=== PATIENT | female | born 1995 | race Caucasian/White ===

== ENCOUNTER 2018-01-24 12:07 | Emergency (ER) | payer OTHER, SELFPAY ==
[2018-01-24 12:17] VITALS: BP 121/74; PULSE 99; RESP 14; TEMP 37.1; O2SAT 99; BMI 26.6
--- NOTE | 2018-01-24 12:26 | ED_ITS ---
HPI - Female Genitourinary <VENICE Deluca - Last Filed: 01/24/18 21:48> General Chief complaint: Urogenital-Female Stated complaint: LEFT FLANK PAIN Time Seen by Provider: 01/24/18 12:25 Source: patient Mode of arrival: ambulatory Limitations: no limitations History of Present Illness HPI Narrative: 22-year-old female with history of depression and PTSD that is a part-time smoker here for very diffuse symptoms of headache chest pain shortness of breath and abdominal pain over the last past week and a half. She was seen by her primary care provider and obtained workup including abdominal CT that was negative for any acute findings. She reports that she does not have a history of having headaches and the headache is towards the back of her head over the past week. She states she may have had a fever a few days ago. She states she has some nausea but no vomiting at this timeframe. She reports last bowel movement was earlier today and was unremarkable. She denies any urinary symptoms. She does have a increased whitish vaginal discharge she denies any vaginal bleeding. She currently does have control via IUD. She denies any stressors or relievers of her pain. She is ambulatory into the emergency room. She is able to speak full sentences. No acute distress. Related Data Home Medications Medication Instructions Recorded Confirmed ferrous sulfate [Iron (ferrous 325 mg PO QDAY #0 04/01/17 sulfate)] [DAYQUIL] PO PRN #0 06/21/17 ibuprofen PO PRN PRN #0 06/21/17 clonidine HCl 1 tab PO BID 01/24/18 01/24/18 dextroamphetamine-amphetamine 1 tab PO DAILY 01/24/18 01/24/18 [Adderall] fluticasone 01/24/18 01/24/18 loratadine 1 tab PO DAILY 01/24/18 01/24/18 methylphenidate HCl 1 tab PO DAILY 01/24/18 01/24/18 naproxen 1 tab PO BID 01/24/18 01/24/18 Previous Rx's Medication Instructions Recorded sertraline 100 mg PO QDAY #90 tab 04/01/17 docusate sodium [Colace] 100 mg PO BID #14 cap 06/22/17 oxycodone 5 mg PO Q4HP PRN #30 tab 06/22/17 sennosides [Senokot] 8.6 mg PO QDAY #10 tab 06/22/17 clindamycin HCl 300 mg PO BID #14 cap 01/24/18 Allergies Allergy/AdvReac Type Severity Reaction Status Date / Time metronidazole [From Flagyl] Allergy Intermediate Swelling Verified 01/24/18 12: 21 of Lip/Tongue/Throat Review of Systems <VENICE Deluca - Last Filed: 01/24/18 21:48> Constitutional Reports fever(s) Eyes Denies change in vision, Denies eye discharge, Denies irritation and Denies loss of vision ENT Ears, Nose, Mouth, and Throat: Denies change in voice, Denies neck pain and Denies sore throat Cardiovascular Reports chest pain, Denies irregular heart rhythm, Denies lightheadedness, Denies palpitations, Reports dyspnea, Denies dyspnea on exertion and Denies orthopnea Respiratory Denies cough, Reports dyspnea, Denies dyspnea on exertion and Denies wheezing Gastrointestinal Gastrointestinal: Reports abdominal pain, Denies change in bowel habits, Denies diarrhea, Denies nausea and Denies vomiting Genitourinary Denies hematuria, Denies flank pain, Denies urinary incontinence and Denies urinary urgency Musculoskeletal Denies neck pain Neurologic Denies loss of vision Endocrine Denies palpitations Allergic/Immunologic Denies wheezing Exam <VENICE Deluca - Last Filed: 01/24/18 21:48> Initial Vital Signs Initial Vital Signs: Vital Signs Temperature 98.7 F 01/24/18 12:17 Pulse Rate 99 H 01/24/18 12:17 Respiratory Rate 14 01/24/18 12:17 Blood Pressure 121/74 01/24/18 12:17 Pulse Oximetry 99 01/24/18 12:17 Const General: cooperative and well developed Nutritional Appearance: well nourished Orientation: alert, awake, oriented x3 and not confused [facility] Mouth: oral mucosae normal and moist mucous membranes Eyes Conjunctivae: conjunctivae normal Sclera: sclerae normal Pupils: PERRL EOM: EOM intact bilaterally Neck Neck: normal visual inspection, trachea midline, No lymphadenopathy, No midline deformity and No JVD Lymphatic: No lymphedema Chest Chest: normal inspection of the chest Resp Effort & Inspection: normal respiratory effort, able to speak in complete sentences, no respiratory distress and no use of accessory muscles Auscultation: clear to auscultation bilaterally, no rales, no rhonchi and no wheezes Cardio Rate: regular rate Rhythm: regular rhythm Heart Sounds: no click, no gallops, no murmurs and no rubs Pulses: normal peripheral pulses GI Inspection: non-distended Palpation: soft, no hepatosplenomegaly, No guarding, No pulsatile mass and No tender Auscultation: normal bowel sounds Speculum Exam - Vagina: normal appearance of the vagina, abnormal vaginal discharge white, no lacerations, no lesions, no swelling and nontender Speculum Exam - Cervix: closed cervix, cervical lesion ( cervix erythematous) other and cervical tenderness Bimanual Exam- Vagina & Uterus: cervical tenderness Skin General: no rashes or lesions noted, No jaundice and No petechiae Neuro General: alert, oriented x3, gait normal and no focal motor deficits Speech: speech normal Extrem General: full ROM, no clubbing, cyanosis or edema, no pedal edema and no calf tenderness <Matt Maloney DO - Last Filed: 01/25/18 07:11> Initial Vital Signs Initial Vital Signs: Vital Signs Temperature 98.7 F 01/24/18 12:17 Pulse Rate 99 H 01/24/18 12:17 Respiratory Rate 14 01/24/18 12:17 Blood Pressure 121/74 01/24/18 12:17 Pulse Oximetry 99 01/24/18 12:17 Course <VENICE Deluca - Last Filed: 01/24/18 21:48> Orders Ordered: Discontinued Medications Hydromorphone HCl (Dilaudid) 0.5 mg IV NOW ONE Stop: 01/24/18 13:07 Last Admin: 01/24/18 13:42 Dose: 0.5 mg Hydromorphone HCl (Dilaudid) 0.5 mg IV NOW ONE Stop: 01/24/18 16:03 Last Admin: 01/24/18 16:31 Dose: 0.5 mg Sodium Chloride (Normal Saline 0.9%) 1,000 mls @ 1,000 mls/hr IV BOLUS ONE Stop: 01/24/18 14:05 Last Infusion: 01/24/18 16:14 Dose: 0 mls/hr Admin: 01/24/18 13:43 Dose: 1,000 mls/hr Ondansetron HCl (Zofran) 4 mg IV NOW ONE Stop: 01/24/18 13:07 Last Admin: 01/24/18 13:43 Dose: 4 mg Vital Signs - 8 hr 01/24/18 14:20 01/24/18 15:13 01/24/18 16:33 Pulse Rate 86 78 80 Respiratory Rate 16 18 18 Blood Pressure [Left Arm] 117/75 117/72 107/68 Pulse Oximetry 99 97 98 01/24/18 16:58 Pulse Rate 101 H Respiratory Rate 18 Blood Pressure [Left Arm] 112/70 Pulse Oximetry 97 <Matt Maloney DO - Last Filed: 01/25/18 07:11> Orders Ordered: Discontinued Medications Hydromorphone HCl (Dilaudid) 0.5 mg IV NOW ONE Stop: 01/24/18 13:07 Last Admin: 01/24/18 13:42 Dose: 0.5 mg Hydromorphone HCl (Dilaudid) 0.5 mg IV NOW ONE Stop: 01/24/18 16:03 Last Admin: 01/24/18 16:31 Dose: 0.5 mg Sodium Chloride (Normal Saline 0.9%) 1,000 mls @ 1,000 mls/hr IV BOLUS ONE Stop: 01/24/18 14:05 Last Infusion: 01/24/18 16:14 Dose: 0 mls/hr Admin: 01/24/18 13:43 Dose: 1,000 mls/hr Ondansetron HCl (Zofran) 4 mg IV NOW ONE Stop: 01/24/18 13:07 Last Admin: 01/24/18 13:43 Dose: 4 mg Vital Signs - 8 hr 01/24/18 14:20 01/24/18 15:13 01/24/18 16:33 Pulse Rate 86 78 80 Respiratory Rate 16 18 18 Blood Pressure [Left Arm] 117/75 117/72 107/68 Pulse Oximetry 99 97 98 01/24/18 16:58 Pulse Rate 101 H Respiratory Rate 18 Blood Pressure [Left Arm] 112/70 Pulse Oximetry 97 MDM - Female Genitourinary <VENICE Deluca - Last Filed: 01/24/18 21:48> Differential Diagnosis Likely cervicitis Lab Data Result diagrams: 01/24/18 12:53 01/24/18 12:53 Lab Results 10/29/18 10/29/18 10/29/18 Range/Units 12:53 12:53 12:53 WBC 8.9 (4.5-11.0) X10^3/uL RBC 4.45 (4.0-5.2) X10^6/uL Hgb 11.3 L (12.0-16.0) g/dL Hct 34.0 L (36-46) % MCV 76.3 L (80-100) fL MCH 25.3 L (26-34) PG MCHC 33.1 (30-36) % RDW 15.9 H (11.6-14.8) % Plt Count 223 (150-400) X10^3/uL Neut % (Auto) 39.7 L (50-75) % Lymph % (Auto) 49.8 H (25-40) % [place] % (Auto) 9.5 (3-14) % Eos % (Auto) 0.7 L (2-4) % Baso % (Auto) 0.3 (0-2) % Neut # (Auto) 3500 (5090-4850) /uL D-Dimer 375 H (<230) ng/mL Sodium 144 (137-145) mmol/L Potassium 4.3 (3.4-5.1) mmol/L Chloride 104 (98-107) mmol/L Carbon Dioxide 25 (22-32) mmol/L BUN 10 (7-17) mg/dL Creatinine 0.60 (0.52-1.04) mg/dL Estimated GFR > 60.0 (>60) mL/min BUN/Creatinine Ratio 16.7 (6-22) Glucose 88 (70-100) mg/dL Calcium 9.5 (8.4-10.2) mg/dL Total Bilirubin 0.4 (0.2-1.3) mg/dL AST 53 H (14-36) IU/L ALT 56 H (9-52) IU/L Alkaline Phosphatase 96 (38-126) U/L Total Creatine Kinase 48 (30-135) U/L CK-MB (CK-2) TNP CK-MB (CK-2) Rel Index TNP Troponin I < 0.012 (0.01-0.034) ng/mL Total Protein 8.0 (6.3-8.2) g/dL Albumin 4.7 (3.5-5.0) g/dL Globulin 3.3 (1.7-4.1) g/dL Albumin/Globulin Ratio 1.4 (1.0-2.8) Lipase 39 (23-300) U/L Ur Chlamydia DNA (PCR) Monoscreen (Negative) Influenza A & B (PCR) (Negative) N gonorrhoeae DNA (PCR) 01/24/18 01/24/18 01/24/18 Range/Units 12:53 13:11 Unknown WBC (4.5-11.0) X10^3/uL RBC (4.0-5.2) X10^6/uL Hgb (12.0-16.0) g/dL Hct (36-46) % MCV (80-100) fL MCH (26-34) PG MCHC (30-36) % RDW (11.6-14.8) % Plt Count (150-400) X10^3/uL Neut % (Auto) (50-75) % Lymph % (Auto) (25-40) % [place] % (Auto) (3-14) % Eos % (Auto) (2-4) % Baso % (Auto) (0-2) % Neut # (Auto) (7471-3274) /uL D-Dimer (<230) ng/mL Sodium (137-145) mmol/L Potassium (3.4-5.1) mmol/L Chloride (98-107) mmol/L Carbon Dioxide (22-32) mmol/L BUN (7-17) mg/dL Creatinine (0.52-1.04) mg/dL Estimated GFR (>60) mL/min BUN/Creatinine Ratio (6-22) Glucose (70-100) mg/dL Calcium (8.4-10.2) mg/dL Total Bilirubin (0.2-1.3) mg/dL AST (14-36) IU/L ALT (9-52) IU/L Alkaline Phosphatase (38-126) U/L Total Creatine Kinase (30-135) U/L CK-MB (CK-2) CK-MB (CK-2) Rel Index Troponin I (0.01-0.034) ng/mL Total Protein (6.3-8.2) g/dL Albumin (3.5-5.0) g/dL Globulin (1.7-4.1) g/dL Albumin/Globulin Ratio (1.0-2.8) Lipase (23-300) U/L Ur Chlamydia DNA (PCR) Not detected Monoscreen Negative (Negative) Influenza A & B (PCR) Negative (Negative) N gonorrhoeae DNA (PCR) Not detected Point of Care Testing Test Results Negative Urine Dip Bedside Urine Glucose Negative Bedside Urine Bilirubin - Negative Bedside Urine Ketone - Negative Urine Specific [place] 1.010 Bedside Urine Occult Blood - Negative Bedside Urine pH 6.0 Bedside Urine Protein - Negative Bedside Urine Urobilinogen - Negative Bedside Urine Nitrite - Negative Bedside Urine Leukocytes - Negative Esterase Imaging Data Chest x-ray: Radiologist's impression: [address] [address] XRay Report Signed Patient: Gabriela Yepez [facility]#: [id number] : 1995Acct:[id number] Age/Sex: 22 / FDate of Service: 01/24/18 Loc: ED Accession Number: [id number] Procedure: XR chest 1V Ordering Provider: Erlin Cruz PROCEDURE: XR CHEST 1V INDICATIONS: chest pain TECHNIQUE: One view of the chest was acquired. COMPARISON: None. FINDINGS: Surgical changes and devices: None. Lungs and pleura: No pleural effusions or pneumothorax. Lungs are clear. Mediastinum: Mediastinal contours appear normal. Heart size is normal. Bones and chest wall: No suspicious bony lesions. Overlying soft tissues appear unremarkable. IMPRESSION: Normal for age, source of chest pain is not seen. Dictated by: Doug Gar M.D. on 01/24/2018 at 13:53 Approved by: Doug Gar M.D. on 01/24/2018 at 13:53 CT scan - head: My impression: Radiologist's impression: [address] [address] [address] Scan Report Signed Patient: Gabriela Yepez [facility]#: [id number] : 1995Acct:[id number] Age/Sex: 22 / FDate of Service: 01/24/18 Loc: ED Accession Number: [id number] Procedure: CT head/brain wo con Ordering Provider: Erlin Cruz PROCEDURE: CT HEAD/BRAIN WO CON INDICATIONS: headache no prior headache history TECHNIQUE: Noncontrast 4.5 mm thick angled axial sections acquired from the foramen magnum to the vertex, with coronal and sagittal reformats. For radiation dose reduction, the following was used: automated exposure control, adjustment of mA and/or kV according to patient size. COMPARISON: None. FINDINGS: Image quality: Excellent. CSF spaces: Basal cisterns are patent. No extra-axial fluid collections. The ventricles are symmetric in size and shape. Brain: No intracranial bleeds or masses. Fisher-white matter differentiation is normal. Skull and face: Calvarium and visualized facial bones appear intact, without suspicious lesions. Sinuses: Visualized sinuses and mastoids are clear. IMPRESSION: No acute intracranial disease process. Dictated by: Maria Antonia Vasquez MD, PhD on 01/24/2018 at 12:24 Approved by: Maria Antonia Vasquez MD, PhD on 01/24/2018 at 12:27 US - abdomen: Radiologist's impression: [place] [address] Ultrasound Report Signed Patient: Gabriela Yepez [facility]#: [id number] : 1995Acct:[id number] Age/Sex: 22 / FDate of Service: 01/24/18 Loc: ED Accession Number: [id number] Procedure: US abdomen complete Ordering Provider: Erlin Cruz PROCEDURE: US ABDOMEN COMPLETE INDICATIONS: LUQ PAIN TECHNIQUE: Real-time scanning was performed of the abdominal and retroperitoneal organs, with image documentation. COMPARISON: None. FINDINGS: Liver: Liver is normal in size and homogeneous in echotexture. Gallbladder: The gallbladder appears normal Biliary ducts: Intrahepatic bile ducts are non-dilated. Extrahepatic bile duct caliber measures 3.6 mm. Normal is 6-7 mm or less in diameter, or 10 mm or less post-cholecystectomy. Pancreas: Visualized portions of the pancreas are sonographically normal. Spleen: Spleen is enlarged in size at 15.3 cm craniocaudad and homogeneous in echotexture. Kidneys: Kidneys are normal in size and echotexture. Right kidney measures 10.3 cm long; left kidney measures 11.6 cm long. No hydronephrosis or nephrolithiasis. No solid masses. Aorta: Visualized aorta is normal in caliber at less than 3 cm. Iliacs: Proximal common iliac arteries are normal in caliber at less than 2.5 cm. IVC: Intrahepatic inferior vena cava is patent. Miscellaneous: No free abdominal fluid. IMPRESSION: Splenomegaly, with a craniocaudad length of the spleen up to 15.3 cm. Etiology is uncertain, no splenic infarction or hemorrhage is found. Dictated by: Doug Gar M.D. on 01/24/2018 at 14:22 Approved by: Doug Gar M.D. on 01/24/2018 at 14:24 ECG Data Interpretation: EKG shows normal sinus rhythm with no ST elevation or depression. No ectopy. Ventricular rate 73. Pr interval 128. QRS duration of 81. QTC 373. MDM Narrative Medical decision making narrative: CBC Chem panel were obtained were unremarkable. Lipase was negative. A chest x-ray is negative for any acute findings. Cardiac enzymes were negative. EKG shows sinus rhythm with no ST elevation or depression. No ectopy. CT of the head was obtained was negative for any acute findings. Abdominal ultrasound was obtained and shows mild splenomegaly with no hemorrhages or ruptures. D-dimer was obtained as the patient reports having some chest pain and shortness of breath and is currently on control. It was elevated at 375 however is below 500 threshold a for indication for chest PE protocol CT. Monospot was obtained and was negative. Otherwise abdominal ultrasound is unremarkable. Wet prep was obtained during pelvic exam and shows positive for clue cells. She is placed on clindamycin. unknown etiology for headache chest pain shortness of breath and abdominal pain. Will have follow-up with primary care provider later this week for re- evaluation. Use [id number] ibuprofen as needed for any discomfort. For any worsening symptoms return to the emergency room. GC and chlamydia urine was obtained and was negative.. <Matt Maloney, DO - Last Filed: 01/25/18 07:11> Lab Data Lab Results 01/24/18 01/24/18 01/24/18 Range/Units 12:53 12:53 12:53 WBC 8.9 (4.5-11.0) X10^3/uL RBC 4.45 (4.0-5.2) X10^6/uL Hgb 11.3 L (12.0-16.0) g/dL Hct 34.0 L (36-46) % MCV 76.3 L (80-100) fL MCH 25.3 L (26-34) PG MCHC 33.1 (30-36) % RDW 15.9 H (11.6-14.8) % Plt Count 223 (150-400) X10^3/uL Neut % (Auto) 39.7 L (50-75) % Lymph % (Auto) 49.8 H (25-40) % [place] % (Auto) 9.5 (3-14) % Eos % (Auto) 0.7 L (2-4) % Baso % (Auto) 0.3 (0-2) % Neut # (Auto) 3500 (1833-2834) /uL D-Dimer 375 H (<230) ng/mL Sodium 144 (137-145) mmol/L Potassium 4.3 (3.4-5.1) mmol/L Chloride 104 (98-107) mmol/L Carbon Dioxide 25 (22-32) mmol/L BUN 10 (7-17) mg/dL Creatinine 0.60 (0.52-1.04) mg/dL Estimated GFR > 60.0 (>60) mL/min BUN/Creatinine Ratio 16.7 (6-22) Glucose 88 (70-100) mg/dL Calcium 9.5 (8.4-10.2) mg/dL Total Bilirubin 0.4 (0.2-1.3) mg/dL AST 53 H (14-36) IU/L ALT 56 H (9-52) IU/L Alkaline Phosphatase 96 (38-126) U/L Total Creatine Kinase 48 (30-135) U/L CK-MB (CK-2) TNP CK-MB (CK-2) Rel Index TNP Troponin I < 0.012 (0.01-0.034) ng/mL Total Protein 8.0 (6.3-8.2) g/dL Albumin 4.7 (3.5-5.0) g/dL Globulin 3.3 (1.7-4.1) g/dL Albumin/Globulin Ratio 1.4 (1.0-2.8) Lipase 39 (23-300) U/L Ur Chlamydia DNA (PCR) Monoscreen (Negative) Influenza A & B (PCR) (Negative) N gonorrhoeae DNA (PCR) 01/24/18 01/24/18 01/24/18 Range/Units 12:53 13:11 Unknown WBC (4.5-11.0) X10^3/uL RBC (4.0-5.2) X10^6/uL Hgb (12.0-16.0) g/dL Hct (36-46) % MCV (80-100) fL MCH (26-34) PG MCHC (30-36) % RDW (11.6-14.8) % Plt Count (150-400) X10^3/uL Neut % (Auto) (50-75) % Lymph % (Auto) (25-40) % [place] % (Auto) (3-14) % Eos % (Auto) (2-4) % Baso % (Auto) (0-2) % Neut # (Auto) (4872-6716) /uL D-Dimer (<230) ng/mL Sodium (137-145) mmol/L Potassium (3.4-5.1) mmol/L Chloride (98-107) mmol/L Carbon Dioxide (22-32) mmol/L BUN (7-17) mg/dL Creatinine (0.52-1.04) mg/dL Estimated GFR (>60) mL/min BUN/Creatinine Ratio (6-22) Glucose (70-100) mg/dL Calcium (8.4-10.2) mg/dL Total Bilirubin (0.2-1.3) mg/dL AST (14-36) IU/L ALT (9-52) IU/L Alkaline Phosphatase (38-126) U/L Total Creatine Kinase (30-135) U/L CK-MB (CK-2) CK-MB (CK-2) Rel Index Troponin I (0.01-0.034) ng/mL Total Protein (6.3-8.2) g/dL Albumin (3.5-5.0) g/dL Globulin (1.7-4.1) g/dL Albumin/Globulin Ratio (1.0-2.8) Lipase (23-300) U/L Ur Chlamydia DNA (PCR) Not detected Monoscreen Negative (Negative) Influenza A & B (PCR) Negative (Negative) N gonorrhoeae DNA (PCR) Not detected Point of Care Testing Test Results Negative Urine Dip Bedside Urine Glucose Negative Bedside Urine Bilirubin - Negative Bedside Urine Ketone - Negative Urine Specific [place] 1.010 Bedside Urine Occult Blood - Negative Bedside Urine pH 6.0 Bedside Urine Protein - Negative Bedside Urine Urobilinogen - Negative Bedside Urine Nitrite - Negative Bedside Urine Leukocytes - Negative Esterase Discharge Plan Departure Patient Disposition: Home Clinical Impression: Bacterial vaginosis, Abdominal pain Discharge Date/Time: 01/24/18 17:00 Interventions: ED Discharge Assessment Last Done: 01/24/18 17:00 Instructions: DI for Bacterial Vaginosis Activity Restrictions/Additional Instructions: laboratory results today were unremarkable. Chest x-ray and EKG were negative. Head CT was obtained was negative for any acute findings. Abdominal ultrasound shows a mildly enlarged spleen this may be due to recent infection a mononucleosis screen was obtained and was negative. Vaginal swab shows indication of bacterial vaginosis. You are placed on an antibiotic use as directed. Use [id number] Tylenol or Motrin as needed for any discomfort. Follow up with her primary care provider next few days for re-evaluation. For any worsening symptoms return to the emergency room. Prescriptions: New clindamycin HCl 300 mg capsule 300 mg PO BID Qty: 14 RF: 0 No Action sertraline 100 MG tablet 100 mg PO QDAY Qty: 90 RF: 3 ferrous sulfate [Iron (ferrous sulfate)] 325 MG tablet 325 mg PO QDAY Qty: 0 RF: 0 ibuprofen 200 MG tablet PO PRN PRNQty: 0 RF: 0 [DAYQUIL] PO PRN Qty: 0 RF: 0 sennosides [Senokot] 8.6 MG tablet 8.6 mg PO QDAY Qty: 10 RF: 1 docusate sodium [Colace] 100 MG capsule 100 mg PO BID Qty: 14 RF: 1 oxycodone 5 MG tablet 5 mg PO Q4HP PRNQty: 30 RF: 0 clonidine HCl 0.1 mg tablet 1 tab PO BID RF: 0 dextroamphetamine-amphetamine [Adderall] 10 mg tablet 1 tab PO DAILY RF: 0 fluticasone 50 mcg/actuation spray,suspension RF: 0 loratadine 10 mg tablet 1 tab PO DAILY RF: 0 naproxen 500 mg tablet 1 tab PO BID RF: 0 methylphenidate HCl 36 mg tablet extended release 24hr 1 tab PO DAILY RF: 0 Referrals: Jose Alejandro Busby MD [Primary Care Provider] - <Matt Maloney DO - Last Filed: 01/25/18 07:11> Cosign ED Attending Beba Attestation: I was available for consultation during this patient's emergency department encounter
--- NOTE | 2018-01-24 12:38 | PC.NURSE ---
Pt c/o headache & dizzyness, neuro intact. No nausea / vomiting. c/o shortness of breath: BS equal and clear. Easy work of breathing. c/o flank pain w/o urinary symptoms. By pt report had no kidney stone on CT.
--- NOTE | 2018-01-24 13:07 | DI.US.S_ITS ---
PROCEDURE: US ABDOMEN COMPLETE INDICATIONS: LUQ PAIN TECHNIQUE: Real-time scanning was performed of the abdominal and retroperitoneal organs, with image documentation. COMPARISON: None. FINDINGS: Liver: Liver is normal in size and homogeneous in echotexture. Gallbladder: The gallbladder appears normal Biliary ducts: Intrahepatic bile ducts are non-dilated. Extrahepatic bile duct caliber measures 3.6 mm. Normal is 6-7 mm or less in diameter, or 10 mm or less post-cholecystectomy. Pancreas: Visualized portions of the pancreas are sonographically normal. Spleen: Spleen is enlarged in size at 15.3 cm craniocaudad and homogeneous in echotexture. Kidneys: Kidneys are normal in size and echotexture. Right kidney measures 10.3 cm long; left kidney measures 11.6 cm long. No hydronephrosis or nephrolithiasis. No solid masses. Aorta: Visualized aorta is normal in caliber at less than 3 cm. Iliacs: Proximal common iliac arteries are normal in caliber at less than 2.5 cm. IVC: Intrahepatic inferior vena cava is patent. Miscellaneous: No free abdominal fluid. IMPRESSION: Splenomegaly, with a craniocaudad length of the spleen up to 15.3 cm. Etiology is uncertain, no splenic infarction or hemorrhage is found. Dictated by: Doug Gar M.D. on 01/24/2018 at 14:22 Approved by: Doug Gar M.D. on 01/24/2018 at 14:24
--- NOTE | 2018-01-24 13:07 | DI.RAD.S_ITS ---
PROCEDURE: XR CHEST 1V INDICATIONS: chest pain TECHNIQUE: One view of the chest was acquired. COMPARISON: None. FINDINGS: Surgical changes and devices: None. Lungs and pleura: No pleural effusions or pneumothorax. Lungs are clear. Mediastinum: Mediastinal contours appear normal. Heart size is normal. Bones and chest wall: No suspicious bony lesions. Overlying soft tissues appear unremarkable. IMPRESSION: Normal for age, source of chest pain is not seen. Dictated by: Doug Gar M.D. on 01/24/2018 at 13:53 Approved by: Doug Gar M.D. on 01/24/2018 at 13:53
--- NOTE | 2018-01-24 13:27 | DI.CT.S_ITS ---
PROCEDURE: CT HEAD/BRAIN WO CON INDICATIONS: headache no prior headache history TECHNIQUE: Noncontrast 4.5 mm thick angled axial sections acquired from the foramen magnum to the vertex, with coronal and sagittal reformats. For radiation dose reduction, the following was used: automated exposure control, adjustment of mA and/or kV according to patient size. COMPARISON: None. FINDINGS: Image quality: Excellent. CSF spaces: Basal cisterns are patent. No extra-axial fluid collections. The ventricles are symmetric in size and shape. Brain: No intracranial bleeds or masses. Fisher-white matter differentiation is normal. Skull and face: Calvarium and visualized facial bones appear intact, without suspicious lesions. Sinuses: Visualized sinuses and mastoids are clear. IMPRESSION: No acute intracranial disease process. Dictated by: Maria Antonia Vasquez MD, PhD on 01/24/2018 at 12:24 Approved by: Maria Antonia Vasquez MD, PhD on 01/24/2018 at 12:27
[2018-01-24 13:32] LABS: Add Manual Diff / Slide Review NO; Basophils Percent Auto 0.3 % (0-2); Eosinophils Percent Auto 0.7 % (2-4); Hemoglobin 11.3 g/dL (12.0-16.0); Lymphocytes Percent Auto 49.8 % (25-40); Mean Corpuscular HGB Conc 33.1 % (30-36); Mean Corpuscular Hemoglobin 25.3 PG (26-34); Mean Corpuscular Volume 76.3 fL (80-100); Monocytes Percent Auto 9.5 % (3-14); Neutrophils Absolute Auto 3500 /uL (3000-5900); Neutrophils Percent Auto 39.7 % (50-75); Platelet Count 223 X10^3/uL (150-400); Red Blood Cell Count 4.45 X10^6/uL (4.0-5.2); Red Cell Distribution Width 15.9 % (11.6-14.8); White Blood Cell Count 8.9 X10^3/uL (4.5-11.0)
[2018-01-24 13:34] LABS: Alanine Aminotransferase 56 IU/L (9-52); Albumin 4.7 g/dL (3.5-5.0); Albumin Globulin Ratio 1.4 (1.0-2.8); Alkaline Phosphatase 96 U/L (38-126); Aspartate Aminotransferase 53 IU/L (14-36); BUN Creatinine Ratio 16.7 (6-22); Bilirubin Total 0.4 mg/dL (0.2-1.3); Blood Urea Nitrogen 10 mg/dL (7-17); Calcium 9.5 mg/dL (8.4-10.2); Carbon Dioxide 25 mmol/L (22-32); Chloride 104 mmol/L (98-107); Creatine Kinase 48 U/L (30-135); Estimated Glomerular Filt Rate > 60.0 mL/min (>60); Globulin 3.3 g/dL (1.7-4.1); Glucose 88 mg/dL (70-100); HEMOLYSIS < 15 (0-50); Lipase 39 U/L (23-300); Potassium 4.3 mmol/L (3.4-5.1); Sodium 144 mmol/L (137-145)
[2018-01-24 13:41] LABS: D Dimer 375 ng/mL (<230)
[2018-01-24] MEDS: HYDROMORPHONE 1 MG INJ 0.5 MG IV ×2 (13:42→16:31)
[2018-01-24 13:43] LABS: Troponin I < 0.012 ng/mL (0.01-0.034)
[2018-01-24] MEDS: SODIUM CHLORIDE 0.9% 1,000 ML 1000 ML IV (13:43)
[2018-01-24] MEDS: ONDANSETRON 4 MG/2 ML INJ IV (13:43)
[2018-01-24 14:06] LABS: Influenza A and B by PCR Rapid Negative (Negative)
[2018-01-24 14:20] VITALS: BP 117/75; PULSE 86; RESP 16; O2SAT 99
[2018-01-24 14:48] LABS: Monotest Negative (Negative)
[2018-01-24 14:50] LABS: Urine N gonorrhoeae NOT DETECTED
[2018-01-24 14:51] LABS: Urine Chlamydia NOT DETECTED
[2018-01-24 15:13] VITALS: BP 117/72; PULSE 78; RESP 18; O2SAT 97
[2018-01-24 16:33] VITALS: BP 107/68; PULSE 80; RESP 18; O2SAT 98
[2018-01-24 16:58] VITALS: BP 112/70; PULSE 101; RESP 18; O2SAT 97
== END 2018-01-24 17:00 | disposition home or self-care (01) ==
PROVIDERS: Emergency Provider Nurse Practitioner Family; Family Provider Family Medicine; PCP Family Medicine
DX: N76.0 Acute vaginitis (principal); B96.89 Other specified bacterial agents as the cause of diseases classified elsewhere; R10.9 Unspecified abdominal pain; R07.89 Other chest pain
CPT/HCPCS: 36591; 70450; 71045; 76700; 80053; 81003; 81025; 82550; 83690; 84484; 85025; 85379; 86318; 87070; 87205; 87210; 87400; 87491; 87591; 93005; 96361; 96374; 96375; 96376; 99283; 99285; J1170; J2405

== ENCOUNTER → 2018-07-04 14:04 | Outpatient (CLI) | payer OTHER, SELFPAY ==
--- NOTE | 2018-07-04 14:06 | DI.MRI.S_ITS ---
PROCEDURE: MR HEAD/BRAIN WO CON INDICATIONS: daily headaches + migraine headaches + tremor/shakes. TECHNIQUE: Noncontrast axial T1 spin echo, axial T2 fast spin echo, sagittal and axial FLAIR, coronal T2 fast spin echo, axial gradient echo, axial diffusion and ADC through the brain. COMPARISON: [facility], CT, CT HEAD/BRAIN WO CON, 01/24/2018, 13:11. FINDINGS: Image quality: Excellent. CSF Spaces: Basal cisterns are patent. No extra-axial fluid collections. Ventricles are normal in size and shape. Brain: No intracranial masses or hemorrhage. Fisher/white matter interface is normal. Brainstem appears normal. Diffusion-weighted images demonstrate no acute ischemic insult. No chronic ischemic insults. Normal intravascular flow voids are present. Skull and face: Calvarium has normal marrow signal. Orbits appear normal. Sinuses: Mastoids clear. There is left maxillary sinus mucosal thickening. IMPRESSION: Left maxillary sinus disease. Otherwise, unremarkable unenhanced study. Dictated by: Sebastien Pennington M.D. on 07/04/2018 at 15:22 Approved by: Sebastien Pennington M.D. on 07/04/2018 at 15:26
== END ==
PROVIDERS: PCP Family Medicine; Visit Provider Family Medicine
DX: G43.909 Migraine, unspecified, not intractable, without status migrainosus (principal); R25.1 Tremor, unspecified; J32.0 Chronic maxillary sinusitis
CPT/HCPCS: 70551